=== PATIENT | female | born 1990 | race Caucasian/White ===

== ENCOUNTER 2019-06-27 18:20 | Inpatient (IN) | payer BC ==
[2019-06-27] MEDS ORDERED: DEXTROSE 5%-LACTATED RINGERS 1,000 ML IV SCH ×3 (19:15→22:30)
[2019-06-27] MEDS ORDERED: BUTORPHANOL TARTRATE 1 MG/ML VIAL IVPB ONE (21:30)
[2019-06-27] MEDS ORDERED: PROMETHAZINE HCL 25 MG/1 ML VIAL IVPB ONE (21:30)
[2019-06-27] MEDS ORDERED: PROMETHAZINE HCL 25 MG/1 ML VIAL ONE (21:49)
[2019-06-27] MEDS ORDERED: BUTORPHANOL TARTRATE 1 MG/ML VIAL ONE ×2 (21:49)
[2019-06-27 21:56] LABS: BASO % 0.2 % (0-2.0); EOS % 0.3 % (0-4.5); HEMATOCRIT 36.5 % (32.4-45.2); HEMOGLOBIN 11.9 GM/dL (10.7-15.3); LYMPH % 19.5 % (8-40); MCH 28.5 pg (25.7-33.7); MCHC 32.6 g/dl (32.0-36.0); MEAN CELL VOLUME 87.3 fl (80-96); MEAN PLT VOLUME 10.9 fl (7.5-11.1); MONO % 5.9 % (3.8-10.2); NEUT % 74.1 % (42.8-82.8); PLATELET COUNT 131 K/MM3 (134-434); RBC 4.18 M/mm3 (3.60-5.2); RDW 14.5 % (11.6-15.6); WHITE BLOOD COUNT 7.4 K/mm3 (4.0-10.0)
[2019-06-27 21:57] LABS: RETICULOCYTES 1.49 % (0.5-1.5)
[2019-06-27 22:11] LABS: INR 0.87 (0.83-1.09); PROTHROMBIN TIME (PATIENT) 10.3 SEC (9.7-13.0)
--- NOTE | 2019-06-27 22:12 | HP ---
Past Medical History - Primary Care Physician PCP:: Britney Reynolds - Admission Chief Complaint: 28yo P 0 @ 39.3 wks with painful contuctions, no vb, no LOF, + FM. denies NEELY, visual changes, RUQ pain History of Present Illness: 1. Normal PNC - last trimester transiently elevated BP, work up negative for HELLP, baseline Platelets - 123 2. GBS neg 3. Received TDap and Flu vaccination in History Source: Patient, Medical Record Limitations to Obtaining History: No Limitations - Past Medical History ...: 2 ...Para: 0 ...Term: 0 ...: 0 ...Spon : 1 ...Induced : 0 ...LMP: 09/24/18 ... Weeks Gestation by Dates: 39.3 ...EDC by Dates: 07/01/19 Musculoskeletal: Yes: Other (Scoliosis) - Past Surgical History Past Surgical History: Yes: Breast Biopsy (Left breast - benign) Hx Myomectomy: No Hx Transabdominal Cerclage: No - Smoking History Have you smoked in the past 12 months: No Home Medications - Allergies Allergies/Adverse Reactions: Allergies Allergy/AdvReac Type Severity Reaction Status Date / Time No Known Drug Allergies Allergy Verified 06/27/19 19:35 Family Medical History Family Hx Cancer: Sister (Breast CA @ 32 - ) Review of Systems - Review of Systems Constitutional: reports: No Symptoms Eyes: reports: No Symptoms HENT: reports: No Symptoms Neck: reports: No Symptoms Cardiovascular: reports: No Symptoms Respiratory: reports: No Symptoms Gastrointestinal: reports: No Symptoms Genitourinary: reports: Other (labor pains) Musculoskeletal: reports: No Symptoms Integumentary: reports: No Symptoms Neurological: reports: No Symptoms Endocrine: reports: No Symptoms Hematology/Lymphatic: reports: No Symptoms Psychiatric: reports: No Symptoms Physical Exam - Maternity Vital Signs: Vital Signs Temperature 98.4 F 06/27/19 19:00 Pulse Rate Respiratory Rate 18 06/27/19 19:00 Blood Pressure O2 Sat by Pulse Oximetry (%) Constitutional: Yes: Well Nourished, No Distress Eyes: Yes: WNL, Conjunctiva Clear HENT: Yes: WNL Neck: Yes: WNL, Supple, Trachea Midline Cardiovascular: Yes: WNL, Regular Rate and Rhythm Lungs: Clear to auscultation Breast(s): Yes: WNL - Abdominal Exam/OB Fundal Height: 39 (7lb) Number of Fetuses: Single Presentation: Vertex Contractions: Yes Regularity: Regular Intensity: Mild/Mod Monitor Mode: External Heart Rate (range): 140 Heart Rate Location: Midline Category: I Accelerations: Uniform Decelerations: None - Vaginal Exam/OB Vaginal Bleediing: No Dilatation (cm): 1 Effacement (%): 90 Amniotic Membrane Status: Intact Presentation: Vertex/Position Station: -3 - Physical Exam Musculoskeletal: Yes: WNL Extremities: Yes: WNL Edema: No Integumentary: Yes: WNL Deep Tendon Reflex Grade: Normal +2 ...Motor Strength: WNL - Labs Lab Results: CBC, BMP 06/27/19 21:30 Assessment/Plan 28yo P0 @ 39.3 wks in early labor, desiring pain medication with Transient HTN of , no symptoms of Preeclampsia Admit to L&D IVF, PreEclamptic labs, NPO Monitor BPs, will follow labs Stadol and Phenergan for pain Gynecoid pelvis Anticipate
[2019-06-27 22:20] LABS: BLOOD UREA NITROGEN 7.5 mg/dL (7-18); CALCIUM 8.7 mg/dL (8.5-10.1); CREATININE 0.6 mg/dL (0.55-1.3); POTASSIUM 3.7 mmol/L (3.5-5.1); URIC ACID 3.5 mg/dL (2.6-7.2)
[2019-06-27] MEDS ORDERED: ELECTROLYTE-148 SOLN 1,000 ML IV SCH (22:30)
[2019-06-27 22:54] VITALS: BMI 25.0
[2019-06-28] MEDS ORDERED: FENTANYL/BUPIVACAINE/NS/PF - PCEA - 50 ML DISP.SYRIN EP ONE ×2 (02:57→07:56)
[2019-06-28] MEDS ORDERED: LIDO 2%/EPI 1:200000 PRESRVFRE (20 ML SDVIAL) ONE ×2 (03:01→08:18)
[2019-06-28] MEDS ORDERED: NALOXONE HCL 0.4 MG/ML VIAL IVPUSH PRN (03:25)
[2019-06-28] MEDS ORDERED: FENTANYL/BUPIVACAINE/NS/PF - PCEA - 50 ML DISP.SYRIN EP SCH ×2 (03:30→04:13)
--- NOTE | 2019-06-28 09:25 | PN ---
Progress Note (short form) - Note Progress Note: cx full 100 vx i+ station , arom clear , fhr cat 1.
[2019-06-28] MEDS ORDERED: LIDOCAINE HCL 1% PRESERVATIVE FREE - 30ML VIAL ONE ×2 (09:52→10:31)
[2019-06-28] MEDS ORDERED: OXYTOCIN 20 UNITS in 0.9% NS 20 UNIT/1,000 ML INFUS.BAG IV ONE ×2 (09:52→10:32)
[2019-06-28] MEDS ORDERED: OXYTOCIN 30 UNITS in 0.9% NS 30 UNIT/500 ML INFUS.BAG IVPB ONE (10:12)
--- NOTE | 2019-06-28 10:13 | PN ---
Progress Note (short form) - Note Progress Note: cx full 100 1+ has epidural, contraction irregular FHR cat 1, advised pitocin
[2019-06-28] MEDS ORDERED: OXYTOCIN 30 UNITS in 0.9% NS 30 UNIT/500 ML INFUS.BAG IVPB SCH (10:15)
--- NOTE | 2019-06-28 10:39 | PN ---
Progress Note (short form) - Note Progress Note: cx full , vx 3+ station, pushing , fhr cat 2, anticipate vaginal delivery soon
[2019-06-28] MEDS ORDERED: BENZOCAINE 28 GM HEMORRHOIDAL OINTMENT TP PRN (11:10)
[2019-06-28] MEDS ORDERED: WITCH HAZEL 50% (TUCKS) 40 PAD/JAR PAD TP PRN (11:10)
[2019-06-28] MEDS ORDERED: BENZOCAINE 20% 57 GM BOTTLE TP PRN (11:10)
[2019-06-28] MEDS ORDERED: METHYLERGONOVINE MALEATE 0.2 MG/1 ML AMP IM PRN (11:10)
[2019-06-28] MEDS ORDERED: BISACODYL 10 MG SUPP.RECT RC PRN (11:10)
--- NOTE | 2019-06-28 11:14 | PN ---
Delivery - Delivery Vaginal Delivery: Spontaneous Type of Anesthesia: Local, Epidural Episiotomy/Laceration: Midline (cx full, median episiotomt done, head deliverd , rené, no cord, ant. post. shoulder with no difficulty , live baby boy, 9 /9. placeta complete , no laceration, episiotomy in 3 layers with 2.o chromic, rectal exam negative , ebl 400 cc , no complication) Delivery, Single - Feeding Plan Initial Plan: Elected not to breastfeed exclusively throughout hospitalization
[2019-06-28] MEDS ORDERED: OXYTOCIN 20 UNITS in 0.9% NS 20 UNIT/1,000 ML INFUS.BAG IV SCH (11:15)
[2019-06-28] MEDS ORDERED: D5W-LR W/ 20 UNITS OXYTOCIN 1,000 ML IV SCH (11:15)
[2019-06-28] MEDS ORDERED: IBUPROFEN 600 MG TABLET (FP) PO ONE (12:49)
[2019-06-28] MEDS ORDERED: ACETAMINOPHEN 325 MG TABLET (FP) ONE (12:49)
[2019-06-28] MEDS: IBUPROFEN 600 MG TABLET (FP) PO PRN (12:50)
[2019-06-28] MEDS: ACETAMINOPHEN 325 MG TABLET (FP) PO PRN ×2 (12:50→22:03)
[2019-06-28] MEDS: FERROUS SO4 325 MG TABLET (FP) PO SCH (17:00)
[2019-06-28] MEDS: LABETALOL HCL 200 MG TABLET (FP) PO PRN (19:54)
[2019-06-29] MEDS: ACETAMINOPHEN 325 MG TABLET (FP) PO PRN ×3 (02:32→15:12)
[2019-06-29 07:55] LABS: BASO % 0.1 % (0-2.0); EOS % 0.1 % (0-4.5); HEMATOCRIT 23.3 % (32.4-45.2); HEMOGLOBIN 7.6 GM/dL (10.7-15.3); LYMPH % 18.1 % (8-40); MCH 28.7 pg (25.7-33.7); MCHC 32.5 g/dl (32.0-36.0); MEAN CELL VOLUME 88.4 fl (80-96); MEAN PLT VOLUME 10.9 fl (7.5-11.1); NEUT % 76.7 % (42.8-82.8); PLATELET COUNT 87 K/MM3 (134-434); RBC 2.63 M/mm3 (3.60-5.2); RDW 14.6 % (11.6-15.6); WHITE BLOOD COUNT 6.1 K/mm3 (4.0-10.0)
[2019-06-29] MEDS: FERROUS SO4 325 MG TABLET (FP) PO SCH ×2 (08:56→17:22)
[2019-06-29 09:35] LABS: PLATELET ESTIMATE DECREASED
[2019-06-29] MEDS: PRENATAL VITAMINS W/ FOLIC ACID TABLET (FP) PO SCH (10:10)
[2019-06-29] MEDS: IBUPROFEN 600 MG TABLET (FP) PO PRN (15:12)
--- NOTE | 2019-06-29 17:33 | PN ---
Progress Note (short form) - Note Progress Note: ppd1 ,c/o of frontal headache, feels congested, no active vaginal bleeding CBC, BMP 06/29/19 07:10 06/27/19 21:30 Last Vital Signs Temp Pulse Resp BP Pulse Ox 98.0 F 102 H 18 136/81 99 06/29/19 14:00 06/29/19 14:00 06/29/19 14:00 06/29/19 14:00 06/28/19 10:30 abdomen soft, no distension, no cva uterus firm, non tender lochia mild. no calf tenderness impression ppd1, anemia headache most likly sinus related with congestion r/o anesthesia related headache advised iv hydration Tylenol prn iron ,vit repeat cbc ,if lowers may need blood transfusion ambulate , dvt prevention discussed
[2019-06-29] MEDS ORDERED: SENNOSIDES/DOCUSATE COMBO (SENNA PLUS) TABLET (UD) PO PRN (22:00)
[2019-06-30] MEDS: LABETALOL HCL 200 MG TABLET (FP) PO PRN (06:10)
--- NOTE | 2019-06-30 07:31 | DS ---
Physical Exam-[employer] Vital Signs: Vital Signs Temperature 98.1 F 06/30/19 00:47 Pulse Rate 84 06/30/19 06:00 Respiratory Rate 20 06/30/19 06:00 Blood Pressure 142/84 06/30/19 06:00 O2 Sat by Pulse Oximetry (%) 99 06/28/19 10:30 Constitutional: Yes: Well Nourished, No Distress, Calm Eyes: Yes: WNL, Conjunctiva Clear, EOM Intact HENT: Yes: WNL, Atraumatic, Normocephalic Neck: Yes: WNL, Supple, Trachea Midline Cardiovascular: Yes: WNL, Regular Rate and Rhythm Respiratory: Yes: WNL, Regular, CTA Bilaterally Gastrointestinal: Yes: WNL ...Rectal Exam: Yes: WNL Renal/: Yes: WNL ....Post : Yes: Uterus firm, Uterus non-tender, Slight lochia rubra Breast(s): Yes: WNL Musculoskeletal: Yes: WNL Extremities: Yes: WNL Integumentary: Yes: WNL Neurological: Yes: WNL, Alert, Oriented ...Motor Strength: WNL Psychiatric: Yes: WNL, Alert, Oriented Labs: CBC, BMP 06/29/19 07:10 06/27/19 21:30 Delivery - Delivery Vaginal Delivery: Spontaneous Type of Anesthesia: Local, Epidural Episiotomy/Laceration: Midline EBL (cc): 400 Delivery, Single - Stages of Labor Date 1st Stage Initiatied: 06/27/19 Time 1st Stage Initiated: 15:00 Date 2nd Stage Initiated: 06/28/19 Time 2nd Stage Initiated: 09:10 Date of Delivery: 06/28/19 Time of Delivery: 10:51 Time Placenta Delivered: 10:55 Placenta: Yes: Spontaneous - Condition of Ice Puller/Filament Cutter Present: No Gender: Male Weight: 6 lb 8 oz Position: Left, OA Total Hours ROM (Hrs/Mins): 1/45 - 1 Minute Total Score: 9 5 Minutes Total Score: 9 - [place] Feeding Plan Initial Plan: Elected not to breastfeed exclusively throughout hospitalization Discharge Summary Problems reviewed: Yes Reason For Visit: ADMIT labor Procedures: Principal: Other Procedures: median episiotomy Hospital Course: anemia Health Concerns: anemia Plan of Treatment: iron, vit Goals: HB 12 Condition: Good - Instructions Diet, Activity, Other Instructions: regular diet, follow up office 4 weeks, if dizziness , heavy vaginal bleeding, pain, fever call cont iron, vit Referrals: Hillary Crockett MD [Staff Physician] - Disposition: HOME - Home Medications Comprehensive Discharge Medication List: Ambulatory Orders Ferrous Fumarate/Folic Acid [Hematinic-Folic Acid Tablet] 1 each PO BID #90 tablet 06/29/19 Ibuprofen [Motrin -] 600 mg PO QID #28 tablet 06/29/19
[2019-06-30] MEDS: FERROUS SO4 325 MG TABLET (FP) PO SCH (08:55)
[2019-06-30 09:33] LABS: BASO % 0.1 % (0-2.0); EOS % 1.5 % (0-4.5); HEMATOCRIT 23.8 % (32.4-45.2); HEMOGLOBIN 7.8 GM/dL (10.7-15.3); MCH 28.4 pg (25.7-33.7); MCHC 32.8 g/dl (32.0-36.0); MEAN CELL VOLUME 86.7 fl (80-96); MEAN PLT VOLUME 10.4 fl (7.5-11.1); MONO % 7.2 % (3.8-10.2); NEUT % 64.2 % (42.8-82.8); PLATELET COUNT 103 K/MM3 (134-434); RBC 2.74 M/mm3 (3.60-5.2); RDW 14.5 % (11.6-15.6); WHITE BLOOD COUNT 6.5 K/mm3 (4.0-10.0)
[2019-06-30 10:02] LABS: POC NITRAZINE NEG
[2019-06-30 10:03] LABS: POC NITRAZINE NEG
[2019-06-30 10:33] VITALS: BP 127/68; PULSE 86; TEMP 97.8
[2019-06-30] MEDS: PRENATAL VITAMINS W/ FOLIC ACID TABLET (FP) PO SCH (10:35)
== END 2019-06-30 12:30 | disposition home or self-care (01) | DRG 807 ==
LOC: JDEL 18:20 → JLDR 21:15 → J3W 06-28 13:16
PROVIDERS: ADMIT Obstetrics & Gynecology; ATTEND Obstetrics & Gynecology
PROC: 10E0XZZ Delivery of Products of Conception, External Approach (ICD-10-PCS; principal; 2019-06-28)
PROC: 0W8NXZZ Division of Female Perineum, External Approach (ICD-10-PCS; 2019-06-28)
DX: O80 Encounter for full-term uncomplicated delivery (principal); Z37.0 Single live birth; Z3A.39 39 weeks gestation of pregnancy
CPT/HCPCS: 36415; 36600; 59025; 59409; 80048; 82803; 82977; 83010; 83986-QW; 84450; 84460; 84550; 85025; 85032; 85044; 85610; 85730; 86593; 86850; 86900; 86901